=== PATIENT | female | born 1960 ===

== ENCOUNTER 2021-11-22 18:47 | Outpatient (REF) | payer BC, SELFPAY ==
[2021-11-22 22:10] LABS: Calculated LDL 168 mg/dL (<100); Cholesterol 276 mg/dL (<200); Folate 12.5 ng/mL (8.6-20.0); HDL Cholesterol 95 mg/dL (40-60); TSH (W/Ref FT4) 1.61 uIU/mL (0.36-3.74); Triglyceride 66 mg/dL (<150); Vitamin B12 440 pg/mL (193-986)
== END 2021-11-22 18:48 | disposition home or self-care (01) ==
LOC: NCHCN 18:47
PROVIDERS: Visit Provider Family Medicine
DX: D75.89 Other specified diseases of blood and blood-forming organs (principal); R07.9 Chest pain, unspecified
CPT/HCPCS: 80061; 82607; 82746; 84443

== ENCOUNTER 2022-01-03 14:38 | Outpatient (REF) | payer BC, SELFPAY ==
[2022-01-06 16:51] LABS: Apolipoprotein B, Serum 112 mg/dL (48-124); Beta VLDL Cholesterol Not Detected mg/dL (<15); Beta VLDL Triglycerides Not Detected mg/dL (<15); Cholesterol, Total, CDC 279 mg/dL; Chylomicron Cholesterol Not Detected; Chylomicron Triglycerides Not Detected; HDL Cholesterol, CDC 88 mg/dL (>=50); LDL Cholesterol 180 mg/dL; LDL Triglycerides 28 mg/dL (<=50); Lp(a) Cholesterol <5 mg/dL (<5); LpX Not detected; Triglycerides, CDC 58 mg/dL; VLDL Cholesterol 11 mg/dL (<30); VLDL Triglycerides 16 mg/dL (<120)
== END 2022-01-03 14:39 | disposition home or self-care (01) ==
LOC: NCHCN 14:38
PROVIDERS: Visit Provider Family Medicine
DX: E78.5 Hyperlipidemia, unspecified (principal)
CPT/HCPCS: 80061; 82172; 82664

== ENCOUNTER 2024-08-04 16:23 | Outpatient (REF) | payer BC, SELFPAY ==
--- NOTE | 2024-08-04 11:40 | SKI_PTH ---
PATIENT: Sushma Monsivais LOC: [facility] U#:[id number] AGE/SX: 64/F ROOM: RE08/04/[address]: Von Linn : 1960 BED: DIS: 08/04/2024 SPEC #: [id number] RECD: 08/04/24 16:59 STATUS: MARIANELA REQ #: [id number] EDWARD: 08/04/24 11:[address]: Von Linn DEPT: Surgical Specimen RECD BY: Kesha Vasquez ENTERED: 08/04/24 17:00 SP TYPE: EFRA GALARZA DR: Unknown,Unknown Tissues: 1 - SKIN BIOPSY(SHAVE/PUNCH) Procedures: SKIN LEVEL 4 Comments: [id number]
== END 2024-08-04 16:24 | disposition home or self-care (01) ==
LOC: NCHCN 16:23
PROVIDERS: Visit Provider Family Medicine
DX: D48.5 Neoplasm of uncertain behavior of skin (principal); L57.0 Actinic keratosis
CPT/HCPCS: 88305